=== PATIENT | female | born 1990 | race Caucasian/White ===

== ENCOUNTER 2022-07-20 18:02 | Emergency (ER) | payer MEDICAID ==
[~2022-07-20] VITALS: Ht 152.4 cm; Wt 72.7 kg
[2022-07-20 18:14] VITALS: BP 119/71
== END 2022-07-20 19:44 | disposition left against medical advice (07) ==
LOC: ER 18:04
DX: R21 Rash and other nonspecific skin eruption (principal); Z53.21 Procedure and treatment not carried out due to patient leaving prior to being seen by health care provider

== ENCOUNTER 2024-05-11 08:46 | Outpatient (CLI) | payer OTHER | END 2024-05-11 23:59 | disposition home or self-care (01) | LOC: MRI02 08:46 | PROVIDERS: ATTEND Student in an Organized Health Care Education/Training Program | DX: S46.001D Unspecified injury of muscle(s) and tendon(s) of the rotator cuff of right shoulder, subsequent encounter (principal); M75.101 Unspecified rotator cuff tear or rupture of right shoulder, not specified as traumatic; M89.311 Hypertrophy of bone, right shoulder; M25.511 Pain in right shoulder; X58.XXXD Exposure to other specified factors, subsequent encounter | CPT/HCPCS: 73221 ==

== ENCOUNTER 2024-10-16 19:53 | Emergency (ER) | payer MEDICAID, OTHER ==
[~2024-10-16] VITALS: Ht 152.4 cm; Wt 76.8 kg
[2024-10-16 20:30] LABS: BILIRUBIN,URINE NEGATIVE (Neg); CLARITY,URINE CLEAR (Clear); COLOR,URINE YELLOW (Yellow); GLUCOSE, URINE NEGATIVE (Neg); KETONES,URINE NEGATIVE (Neg); LEUKOCYTE ESTERASE ,URINE NEGATIVE (Neg); NITRITES, URINE NEGATIVE (Neg); OCCULT BLOOD,URINE TRACE-INTACT (Neg); PROTEIN,URINE 100 mg/dl (Neg); UROBILINOGEN,URINE 0.2 E.U/dL (0.2-1.0)
[2024-10-16 20:32] LABS: URINE HCG NEGATIVE (NEG)
[2024-10-16 20:41] LABS: BASOPHILS % (AUTO) 0.3 % (0-1); EOSINOPHILS # (AUTO) 0.2 X10'3 (0-0.9); EOSINOPHILS % (AUTO) 2.1 % (0-6); HEMATOCRIT 41.7 % (35.0-45.0); HEMOGLOBIN 13.5 g/dl (12.0-16.0); LYMPHOCYTES # (AUTO) 2.9 X10'3 (1.1-4.8); MEAN CORPUSCULAR HGB CONC 32.5 g/dL (33.0-36.5); MEAN PLATELET VOLUME 10.1 FL (7.4-10.4); MONOCYTES # (AUTO) 0.7 X10'3 (0-0.9); MONOCYTES % (AUTO) 6.2 % (2-12); NEUTROPHILS % (AUTO) 64.4 % (42-75); PLATELET COUNT 170 X10'3 (140-440); RED BLOOD COUNT 5.42 X10'6 (4.20-5.60); RED CELL DISTRIBUTION WIDTH 17.3 % (11.5-14.5); WHITE BLOOD COUNT 10.8 X10'3 (4.5-11.0)
[2024-10-16 20:41] LABS: UA COLLECTION TYPE CLN CATCH MIDSTREAM
[2024-10-16 20:42] LABS: RBC,URINE 0-2 /HPF (0-2)
[2024-10-16 20:43] LABS: BACTERIA,URINE FEW /HPF (Neg); MUCUS STRANDS FEW /LPF (Neg); SQUAMOUS EPITHELIAL CELL,UR MODERATE /LPF (FEW)
[2024-10-16 20:59] LABS: ALANINE AMINOTRANSFERASE 29 U/L (12-78); ALBUMIN 3.3 G/DL (3.4-5.0); ALBUMIN/GLOBULIN RATIO 0.7 (1.1-1.5); ALKALINE PHOSPHATASE 48 IU/L (46-116); ANION GAP 8 (8-16); ASPARTATE AMINO TRANSFERASE 16 U/L (10-37); BILIRUBIN,TOTAL 0.4 MG/DL (0.1-1.0); BLOOD UREA NITROGEN 13 MG/DL (7-18); BUN/CREATININE RATIO 15.3 (10.0-20.0); CHLORIDE 106 MMOL/L (99-107); CREATININE 0.85 MG/DL (0.40-0.90); GLUCOSE 94 MG/DL (70-104); LIPASE 42 U/L (16-77); POTASSIUM 3.9 MMOL/L (3.5-5.1); SODIUM 141 MMOL/L (135-145); TOTAL CARBON DIOXIDE 27.5 MMOL/L (24-32); TOTAL PROTEIN 7.9 G/DL (6.4-8.2); eCRCL 66 ML/MIN; eGFR 76 ML/MIN
[2024-10-16] MEDS: ketorolac trometh 15mg/ml vial 15 MG/ML ML IM ONE (21:28)
[2024-10-16] MEDS: cephalexin 250mg capsule PO ONE (21:28)
[2024-10-16 21:33] VITALS: TEMP 96.8
[2024-10-16] MEDS ORDERED: CEFU250T95 PO (22:30)
[2024-10-16] MEDS ORDERED: ONDA-243 PO (23:07)
[2024-10-16 23:17] VITALS: BP 122/74; PULSE 79; RESP 16; O2SAT 98
== END 2024-10-16 23:19 | disposition home or self-care (01) ==
LOC: ER 19:53
DX: N39.0 Urinary tract infection, site not specified (principal); K80.20 Calculus of gallbladder without cholecystitis without obstruction
CPT/HCPCS: 36415; 74176; 80053; 81001; 81025; 83690; 85025; 87088; 96372; 99285; J1885

== ENCOUNTER 2025-01-29 06:39 | Outpatient (CLI) | payer OTHER ==
[~2025-01-29 06:39] MED LIST: ONDA-243 PO
[2025-01-29] MEDS ORDERED: LIDOcaine 1%/PF 5ML 10 MG/ML VIAL ONE (06:55)
[2025-01-29] MEDS ORDERED: LIDOcaine 1% 30ml preserv. free vial ONE (06:55)
[2025-01-29] MEDS ORDERED: GADOTERATE MEGLUMINE 7.5 MMOL/15 ML VIAL IV ONE (06:55)
[2025-01-29] MEDS ORDERED: iohexol 300 MG/1 ML 50ml polymer ONE (06:55)
--- NOTE | 2025-01-29 08:32 | RADIOLOGY REPORT ---
ANGIO ARTHROGRAM (A) Date: 01/29/2025 07:18 AM Clinical History: OTHER ARTICULAR CARTILAGE DISORDERS, RIGHT WRIST Comparison: None Procedure: Verbal and written informed consent were obtained from the patient for the procedure of right wrist fluoroscopically guided arthrogram, after the procedure, risks, and benefits of the procedure were ex plained to the patient. Risks include bleeding, infection, reaction to injected medications, and dam age to surrounding anatomic structures. The patient's questions were answered. The patient's most r ecent medical history was reviewed. A time out was performed to verify the patient's name, date of , and correct location of the pro cedure, prior to initiation of the procedure. The patient was placed supine on the fluoroscopic table and the area overlying the right wrist was p repped and draped in the usual sterile fashion. The patient tolerated the procedure well. There were no immediate complications. Home-care instruct ions were reviewed with the patient prior to the patient's discharge from the fluoroscopy suite. The patient verbally affirmed understanding of these instructions. Impression: Technically successful fluoroscopically guided right wrist arthrogram. The patient was transported to MRI for further imaging at the completion of the procedure. Procedure by Dr. Dumas
--- NOTE | 2025-01-29 08:57 | RADIOLOGY REPORT ---
CLINICAL INFORMATION: OTHER ARTICULAR CARTILAGE DISORDERS, RIGHT WRIST. Right wrist pain. COMPARISON: None. TECHNIQUE: Multisequence multiplanar MR arthrogram images of the right wrist were obtained after the uneventful intra-articular injection of a dilute gadolinium contrast mixture under fluoroscopic wilian nce. Refer to the separately dictated arthrogram injection report for details concerning the contrast injection. FINDINGS: TFCC: There is thinning of the articular disc of the TFCC. There is contrast extending from the radi ocarpal joint into the distal radioulnar joint, suspecting full-thickness communication. Edema and in distinctness of the fibers at the ulnar styloid and foveal attachments of the TFCC, suspected partial tears, of uncertain chronicity. There is also indistinctness of the fibers of the ulnar collateral l igament and contrast extending through the ulnar collateral ligament into the ulnar sided subcutaneou s tissues, Suspected tear with full-thickness communication. ULNAR VARIANCE: Positive ulnar variance. DRUJ: There is contrast extending into the DRUJ. There is no dislocation or subluxation. LIGAMENTS: Scapholunate and lunotriquetral ligaments are intact. Radial collateral ligament is indist inct and attenuated near its radial scaphoid attachments, suspected partial tears, with full-thicknes s communication and contrast extending into the more superficial soft tissues. FLEXOR TENDONS: Unremarkable signal intensity and course. No significant tendinosis, tenosynovitis, o r tear. CARPAL TUNNEL: Unremarkable. Normal appearance of the median nerve and flexor retinaculum. EXTENSOR TENDONS: There is contrast in the 2nd and 4th extensor compartments. No tendon tear identifi ed. BONES/JOINTS: No fracture or focal marrow contusion OTHER: No other significant findings. IMPRESSION: 1. Suspected partial tears of the ulnar styloid and foveal attachments of the TFCC and also involving the ulnar collateral ligament, of uncertain chronicity. There is thinning of the articular disc of t he TFCC. There is contrast passing through the TFCC into the distal radioulnar joint suggesting full -thickness perforation. 2. Partial tears of the radial and scaphoid attachment sites of the radial collateral ligament. 3. Positive ulnar variance.
== END 2025-01-29 23:59 | disposition home or self-care (01) ==
LOC: RAD 06:39
PROVIDERS: ATTEND Chiropractor
DX: M25.531 Pain in right wrist (principal); S63.591A Other specified sprain of right wrist, initial encounter; X58.XXXA Exposure to other specified factors, initial encounter; Y93.89 Activity, other specified; Y92.89 Other specified places as the place of occurrence of the external cause; Y99.8 Other external cause status
CPT/HCPCS: 25246; 73222; 77002; A9575; J2003; J3490; Q9967

== ENCOUNTER 2025-04-19 09:09 | Outpatient (CLI) | payer OTHER ==
--- NOTE | 2025-04-19 12:59 | RADIOLOGY REPORT ---
CLINICAL INFORMATION: Cervical radiculopathy. TECHNIQUE: Multisequence multiplanar MRI images of the cervical spine were obtained without contrast. COMPARISON: MR MRI LUMBAR SPINE on DOS: 04/19/25 FINDINGS: Bones: Straightening of the normal cervical lordosis. No significant spondylolisthesis. Vertebral body heights are maintained. Posterior elements are intact. No acute fracture. Intraosseous hemangioma in the C5 vertebral body. No focal suspicious marrow signal abnormality. Spinal cord: Spinal cord is normal in signal intensity and morphology. Paraspinal soft tissues: Paraspinal and prevertebral soft tissues are unremarkable. Other: Prominent bilateral cervical lymph nodes measuring up to 1.5 x 0.8 cm in greatest dimension at the level 2 and 3 cervical stations, likely reactive. Mildly prominent Adenoid tonsils. Cervical disc levels: C2-C3: Disc desiccation. Minimal disc bulge superimposed on congenital spinal canal narrowing causing mild spinal canal stenosis. No significant neural foraminal stenosis. C3-C4: Disc desiccation with diffuse disc bulge superimposed on congenital spinal canal narrowing, causing moderate spinal canal stenosis, closely approximating the ventral aspect of the spinal cord and partially effacing the lateral recesses. Facet and uncinate hypertrophy with [id number] bilateral neural foraminal stenoses. C4-C5: Disc desiccation. Minimal disc bulge superimposed on congenital spinal canal narrowing causing mild spinal canal stenosis. No significant neural foraminal stenosis. C5-C6: Disc desiccation. Minimal disc bulge superimposed on congenital spinal canal narrowing with mild spinal canal stenosis. No significant neural foraminal stenosis. C6-C7: Disc desiccation. No significant disc bulge or spinal canal stenosis. Mild left neural foraminal stenosis secondary to facet and uncinate hypertrophy. C7-T1: Disc desiccation. No significant spinal canal or neural foraminal stenoses. Small cysts are seen in the neural foramina bilaterally, likely perineural cysts. IMPRESSION: 1. Degenerative disc disease and facet/ uncinate disease superimposed on congenital spinal canal narrowing causing spinal canal and neural foraminal stenoses as detailed above. 2. Straightening of the normal cervical lordosis. No significant spondylolisthesis. 3. Prominent bilateral cervical lymph nodes, likely reactive. 4. Additional findings as detailed above.
--- NOTE | 2025-04-19 13:18 | RADIOLOGY REPORT ---
PROCEDURE: MR MRI LUMBAR SPINE Indication: RADICULOPATHY,CERVICAL REGION, LOW BACK PAIN COMPARISON: None TECHNIQUE: Multiplanar multisequence images of the the lumbar spine are obtained. FINDINGS: For the purpose of this examination, there are 5 lumbar vertebral body types counting from the lumbosacral junction. Lumbar heights are maintained. There is moderate disc space and desiccation at L5-S1. Lumbar alignment preserved. Conus terminates at the L1 vertebral body level. T12-L1: Tiny disc protrusion. Moderate facet and flavum hypertrophy. No spinal canal, neural foraminal stenosis. L1-2: No disc protrusion. Moderate facet and flavum hypertrophy. No spinal canal, neural foraminal stenosis. L2-3: No disc protrusion. Mild facet and flavum hypertrophy. No spinal canal, neural foraminal stenosis. L3-4: No disc protrusion. Mild facet and flavum hypertrophy. No spinal canal, neural foraminal stenosis. L4-5: 2 mm disc protrusion. Moderate facet and flavum hypertrophy. No spinal canal stenosis. Mild bilateral neural foraminal stenosis. L5-S1: 3 mm disc protrusion with annular tear. [id number] facet and flavum hypertrophy. No spinal canal stenosis. Mild to moderate bilateral neural foraminal stenosis. 1 cm L2 vertebral body hemangioma. 2.6 cm left ovarian cystic lesion. Small amount of surrounding fluid. IMPRESSION: Moderate degenerative disc disease at L5-S1 with 3 mm disc protrusion, central annular tear. No high-grade spinal canal stenosis. Mild to moderate neural foraminal stenosis L5-S1. Mild neural foraminal stenosis L4-5. 2.6 cm left ovarian cystic lesion and small amount of surrounding free pelvic fluid. Pelvic ultrasound can be obtained to further characterize .
== END 2025-04-19 23:59 | disposition home or self-care (01) ==
LOC: MRI02 09:09
PROVIDERS: ATTEND Chiropractor
DX: M50.11 Cervical disc disorder with radiculopathy, high cervical region (principal); M47.22 Other spondylosis with radiculopathy, cervical region; M51.370 Other intervertebral disc degeneration, lumbosacral region with discogenic back pain only; M51.27 Other intervertebral disc displacement, lumbosacral region; M51.25 Other intervertebral disc displacement, thoracolumbar region; M53.83 Other specified dorsopathies, cervicothoracic region; M47.815 Spondylosis without myelopathy or radiculopathy, thoracolumbar region; M48.02 Spinal stenosis, cervical region; M53.87 Other specified dorsopathies, lumbosacral region; M48.07 Spinal stenosis, lumbosacral region; N83.292 Other ovarian cyst, left side; D18.03 Hemangioma of intra-abdominal structures; R59.0 Localized enlarged lymph nodes; M24.131 Other articular cartilage disorders, right wrist; G56.21 Lesion of ulnar nerve, right upper limb; M25.551 Pain in right hip
CPT/HCPCS: 72141; 72148